=== PATIENT | male | born 1950 | race Caucasian/White ===

== ENCOUNTER 2019-09-10 20:49 | Emergency (ER) | payer OTHER ==
--- OUTSIDE RECORDS SUMMARY | 2019-09-10 20:51 | XMS REPORT | Summary of Care ---
:1950 Author Organization [facility] Address [address] [place] [address] Care Team Providers Name Role Phone Pcp, Patient Does Not Have A Primary Care Provider Reason for Referral Radiology Services (Routine) Status Reason Specialty Diagnoses / Referred By Referred To Procedures Contact Contact Closed Diagnostic Diagnoses Left leg pain Devin Brizuela Radiology Procedures XR FEMUR 2 VW LEFT MD Chiquita [address] [place] [address] Radiology Services (Routine) Status Reason Specialty Diagnoses / Referred By Referred To Procedures Contact Contact Closed Diagnostic Diagnoses Left leg pain eDvin Brizuela Radiology Procedures XR FEMUR 2 VW [place] [address] Reason for Visit Radiology Services (Routine) Status Reason Specialty Diagnoses / Referred By Referred To Procedures Contact Contact Closed Diagnostic Diagnoses Left leg pain Devin Brizuela Radiology Procedures XR FEMUR 2 VW [place] [address] Encounter Details Date Type Department Care Team Description 02/13/2019 Hospital Encounter [facility] Devin Brizuela Arrived [facility] [address] [facility] [address] [place] [address] [address] [phone] [place] [address] Allergies Active Allergy Reactions Severity Noted Date Comments Penicillin Unknown - See comments 02/13/2019 documented as of this encounter (statuses as of 02/14/2019) Medications No known medicationsdocumented as of this encounter (statuses as of 02/14/2019) Active Problems Not on filedocumented as of this encounter (statuses as of 02/14/2019) Social History Tobacco Use Types Packs/Day Years Used Date Never Assessed Sex Assigned at Date Recorded Not on file Job Start Date Occupation Industry Not on file Not on file Not on file Travel History Travel Start Travel End No recent travel history available. documented as of this encounter Last Filed Vital Signs Not on filedocumented in this encounter Plan of Treatment Health Maintenance Due Date Last Done Comments HEPATITIS C (HCV) SCREEN 1950 DTaP,Tdap,and Td Vaccines (1 - Tdap) 1968 COLONOSCOPY 1999 Zoster Recombinant Vaccine (SHINGRIX) (1 of 2) 1999 Medicare Wellness Visit 2014 PNEUMOCOCCAL VACCINES 65+ (1 of 2 - PCV13) 2014 INFLUENZA VACCINE (#1) 2019 documented as of this encounter Procedures Procedure Name Priority Date/Time Associated Diagnosis Comments XR FEMUR 2 VW LEFT Routine 02/13/2019 1:53 PM Left leg pain Results for this CDT procedure are in the results section. documented in this encounter Results XR FEMUR 2 VW LEFT (02/13/2019 1:53 PM CDT) Specimen Impressions Performed At PACS/VR/DOSE Unremarkable duese-dqv-qult amputation changes. 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 Narrative Performed At EXAM: PACS/VR/DOSE XR FEMUR 2 VW LEFT HISTORY: BKA COMPARISON: None FINDINGS: Imaging of the left femur demonstrates changes of msyjg-bpg-dvyz amputation through the mid femoral diaphysis with unremarkable bony margins of resection. No soft tissue gas, periosteal reaction or osteolysis is seen. Vascular/dystrophic calcification is seen along the femoral neck. Procedure Note [facility], Radiant Results Inft User - 02/13/2019 2:14 PM CDT EXAM: XR FEMUR 2 VW LEFT HISTORY: BKA COMPARISON: None FINDINGS: Imaging of the left femur demonstrates changes of cnnxe-kht-zmmn amputation through the mid femoral diaphysis with unremarkable bony margins of resection. No soft tissue gas, periosteal reaction or osteolysis is seen. Vascular/dystrophic calcification is seen along the femoral neck. IMPRESSION Unremarkable yivgz-ogb-ytrq amputation changes. 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 Performing Organization Address City/State/Zipcode Phone Number PACS/VR/DOSE documented in this encounter Visit Diagnoses Diagnosis Left leg pain Pain in limb documented in this encounter Insurance Payer Benefit Plan / Subscriber ID Effective Dates Phone Address Type Group [facility] TANVIR RAMEY [id number] 2018-Presen Medicare Adv PLUS PLUS t HMO CLASSIC/VALUE documented as of this encounter
--- OUTSIDE RECORDS SUMMARY | 2019-09-10 20:51 | XMS REPORT | Summary of Care ---
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) no films Chata Gale Craig SURGERY / Procedures CONSULT/REFERRAL ORTHOPAEDIC SURGERY NEW VISIT (FIRST TIME) Maico Porras MD Orthopedic Surgery [address] [facility] [address] [facility] [address] [place] [phone] [place] [address] Phone: Fax: Encounter Details Date Type Department Care Team Description 02/13/2019 Office Visit [facility] Devin Brizuela Above knee amputation Surgery- Cl Porras MD status, left (Primary [address] [facility], [address] [facility]) [address] [facility] [address] [place] [id number] [place], [place] [phone] [address] Allergies Active Allergy Reactions Severity Noted Date Comments Penicillin Unknown - See comments 02/13/2019 documented as of this encounter (statuses as of 02/13/2019) Medications No known medicationsdocumented as of this encounter (statuses as of 02/13/2019) Active Problems Not on filedocumented as of this encounter (statuses as of 02/13/2019) Social History Tobacco Use Types Packs/Day Years Used Date Never Assessed Sex Assigned at Date Recorded Not on file Job Start Date Occupation Industry Not on file Not on file Not on file Travel History Travel Start Travel End No recent travel history available. documented as of this encounter Last Filed Vital Signs Vital Sign Reading Time Taken Comments Blood Pressure 150/89 02/13/2019 2:12 PM CDT Pulse 73 02/13/2019 2:12 PM CDT Temperature - - Respiratory Rate 18 02/13/2019 2:12 PM CDT Oxygen Saturation - - Inhaled Oxygen Concentration - - Weight 78 kg (172 lb) 02/13/2019 2:12 PM CDT Height 180.3 cm (5' 11") 02/13/2019 2:12 PM CDT Body Mass Index 23.99 02/13/2019 2:12 PM CDT documented in this encounter Progress Notes Devin Brizuela MD - 02/13/2019 1:45 PM CDT Mikala rGimaldo is a 68 year old male Chief Complaint Patient presents with New Patient Leg Pain left leg pain Vitals: 02/13/19 1412 BP: (!) 150/89 BP Location: Left arm Patient Position: Sitting BP CUFF SIZE: Adult Medium Pulse: 73 Resp: 18 Weight: 78 kg (172 lb) Height: 71" (180.3 cm) No Pharmacies Listed ( patient does not know names of medicines he is taking and he gets his medications through the [facility] in [place]) All Vitals taken, allergies and all medications reviewed, fall risk assessed. Pain level 5/10. LOLI VÁSUQEZ MA 02/13/2019 2:15 PM Mikala Grimaldo is a 68 year old male. 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 Patient states he feels a pulling sensation since the surgery. He no longer has phantom foot pain. He has tried walking with a prosthetic but it is very painful. Leg Pain The incident occurred more than 1 week ago. The incident occurred at home. There was no injury mechanism. The pain is present in the left leg. The quality of the pain is described as aching and burning. The pain is at a severity of 7/ 10. The pain is moderate. The pain has been worsening since onset. Associated symptoms include an inability to bear weight. The symptoms are aggravated by movement and weight bearing. He has tried NSAIDs and immobilization for the symptoms. Allergies Mikala is allergic to penicillin. Medications No outpatient medications prior to visit. No facility-administered medications prior to visit. Histories No past medical history on file. No past surgical history on file. Social History Socioeconomic History Marital status: Single Spouse name: Not on file Number of children: Not on file Years of education: Not on file Highest education level: Not on file Occupational History Not on file Social Needs Financial resource strain: Not on file Food insecurity: Worry: Not on file Inability: Not on file Transportation needs: Medical: Not on file Non-medical: Not on file Tobacco Use Smoking status: Not on file Substance and Sexual Activity Alcohol use: Not on file Drug use: Not on file Sexual activity: Not on file Lifestyle Physical activity: Days per week: Not on file Minutes per session: Not on file Stress: Not on file Relationships Social connections: Talks on phone: Not on file Gets together: Not on file Attends anglican service: Not on file Active member of club or organization: Not on file Attends meetings of clubs or organizations: Not on file Relationship status: Not on file Intimate partner violence: Fear of current or ex partner: Not on file Emotionally abused: Not on file Physically abused: Not on file Forced sexual activity: Not on file Other Topics Concern Not on file Social History Narrative Not on file No family history on file. Review of Systems Constitutional: Negative. HENT: Negative. Eyes: Negative. Respiratory: Negative. Breasts: Negative. Cardiovascular: Negative. Gastrointestinal: Negative. Genitourinary: Negative. Musculoskeletal: Positive for joint swelling. Skin: Negative. Neurological: Negative. Psychiatric/Behavioral: Negative. Endocrine: Endocrine negative Vital Signs BP (!) 150/89 (BP Location: Left arm, Patient Position: Sitting, BP CUFF SIZE: Adult Medium) | Pulse 73 | Resp 18 | Ht 71" (180.3 cm) | Wt 78 kg (172 lb) | BMI 23.99 kg/m Physical Exam Musculoskeletal: General: Well-developed well-nourished oriented to person place and time HEENT normocephalic atraumatic atraumatic pupils equal round reactive to light extraocular muscles intact Cervical thoracic and lumbar spine without focal deficit normal kyphosis and lordosis Chest clear to auscultation and percussion Cardiovascular regular rate and rhythm without gallop rub or murmur soft without organomegaly Normal bowel sounds Neurologic: Focal myotome or dermatomal deficits Vascular: Intact symmetrical bilateral upper and lower extremities Skin without stasis varicosities or breakdown Extremities without cyanosis clubbing or edema Lymphatics no peripheral lymphedema Psych normal mood and affect. Neurovascular function is intact. To include brisk capillary refill warm pink skin active motor function and sensory function intact. Nursing note and vitals reviewed. EXAM: XR FEMUR 2 VW LEFT HISTORY: BKA COMPARISON: None FINDINGS: Imaging of the left femur demonstrates changes of gfeln-wxi-zkdx amputation through the mid femoral diaphysis with unremarkable bony margins of resection. No soft tissue gas, periosteal reaction or osteolysis is seen. Vascular/dystrophic calcification is seen along the femoral neck. IMPRESSION Unremarkable ncqtt-xnz-wzyj amputation changes. 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 Assessment/Plan Left above the knee amputation Informed patient it can take a year of continued work for the prosthetic to be properly fitted. An AKA is more difficult than a BKA due to the body energy needed to move the leg. Recommend he continue to work on getting his prosthetic fitted properly. 3: 21 PM CDTdocumented in this encounter Plan of Treatment Health Maintenance Due Date Last Done Comments HEPATITIS C (HCV) SCREEN 1950 DTaP,Tdap,and Td Vaccines (1 - Tdap) 1968 COLONOSCOPY 1999 Zoster Recombinant Vaccine (SHINGRIX) (1 of 2) 1999 Medicare Wellness Visit 2014 PNEUMOCOCCAL VACCINES 65+ (1 of 2 - PCV13) 2014 INFLUENZA VACCINE (#1) 2019 documented as of this encounter Results Not on filedocumented in this encounter Visit Diagnoses Diagnosis Above knee amputation status, left - Primary documented in this encounter Insurance Payer Benefit Plan / Subscriber ID Effective Dates Phone Address Type Group ULISES RAMEY [id number] 2018-Presen Medicare Adv PLUS PLUS t HMO CLASSIC/VALUE documented as of this encounter
--- OUTSIDE RECORDS SUMMARY | 2019-09-10 20:51 | XMS REPORT ---
:1950 [facility] Address [address] [place] [address] Care Team Providers Name Role Phone Unavailable Unavailable Unavailable Problems This patient has no known problems. Allergies, Adverse Reactions, Alerts This patient has no known allergies or adverse reactions. Medications This patient has no known medications.
--- OUTSIDE RECORDS SUMMARY | 2019-09-10 20:51 | XMS REPORT | Summary of Care ---
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 Chata Gale Craig SURGERY / Procedures CONSULT/REFERRAL ORTHOPAEDIC SURGERY NEW VISIT (FIRST TIME) Maico Porras MD Orthopedic Surgery [address] [facility] [address] [facility] [address] [place] [phone] [place] [address] Phone: Fax: Encounter Details Date Type Department Care Team Description 02/13/2019 Office Visit [facility] Orthopaedic Devin Brizuela Above knee amputation Surgery- Cl Porras MD status, left (Primary 7 [facility], [address] [facility]) [address] [place] [phone] [place], [place] [phone] Allergies Active Allergy Reactions Severity Noted [...] MD - 02/13/2019 1:45 PM CDT Mikala Grimaldo is a 68 year old male Chief [...] and he gets his medications through the [facility] in [place]) All Vitals taken, allergies and all medications reviewed, fall risk assessed. Pain level 5/10. LOLI VÁSQUEZ MA 02/13/2019 2:15 PM Mikala Grimaldo is [...] file Gets together: Not on file Attends sikh service: Not on file Active member of [...] of the left femur demonstrates changes of yulgv-fru-ksrw amputation through the mid femoral diaphysis with unremarkable bony margins of resection. No soft tissue gas, periosteal reaction or osteolysis is seen. Vascular/dystrophic calcification is seen along the femoral neck. IMPRESSION Unremarkable ztwqi-ytx-vfep amputation changes. 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 [...] Dates Phone Address Type Group ULISES RAMEY [id number] 2018-Presen Medicare Adv PLUS PLUS t HMO CLASSIC/VALUE documented as of this encounter
--- OUTSIDE RECORDS SUMMARY | 2019-09-10 20:52 | XMS REPORT | Summary of Care ---
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 [address] [place] [phone] [place] [address] Allergies Active Allergy Reactions Severity Noted Date Comments Penicillin Unknown - See comments 02/13/2019 documented as of this encounter (statuses as of 09/04/2019) Medications No known medicationsdocumented as of this encounter (statuses as of 09/04/2019) Active Problems Not on filedocumented as of this encounter (statuses as of 09/04/2019) Social History Tobacco Use Types Packs/Day Years Used Date Never Assessed Sex Assigned at Date Recorded Not on file Job Start Date Occupation Industry Not on file Not on file Not on file Travel History Travel Start Travel End No recent travel history available. documented as of this encounter Last Filed Vital Signs Vital Sign Reading Time Taken Comments Blood Pressure 164/98 09/04/2019 5:55 PM CDT Pulse 85 09/04/2019 5:55 PM CDT Temperature 37.1 C (98.7 F) 09/04/2019 5:55 PM CDT Respiratory Rate 18 09/04/2019 5:55 PM CDT Oxygen Saturation 97% 09/04/2019 5:55 PM CDT Inhaled Oxygen Concentration - - Weight 77.1 kg (170 lb) 09/04/2019 5:55 PM CDT Height - - Body Mass Index 23.71 02/13/2019 2:12 PM CDT documented in this encounter Plan of Treatment Health [...] Results Not on filedocumented in this encounter Insurance Payer Benefit Plan Subscriber ID Effective Phone Address Type / Group Dates [facility] [id number] 2019-[place] [phone] [address] Medicare Adv PLUS/SELEC SNP nt [phone] [id number] [place] [address] documented as of this encounter
--- NOTE | 2019-09-10 21:33 | ER ---
[facility]'s [facility] Name: Melony Grimaldo Age: 69 yrs Sex: Male : 1950 Arrival Date: 09/10/2019 Time: 20:52 Bed 17 Private MD: Diagnosis: Dermatitis, unspecified Presentation: 09/09 21:01 Acuity: WILTON 5 sg 21:03 Method Of Arrival: Ambulatory ea 21:03 Chief complaint: Patient states: Itching all over body for several weeks now. sg Coronavirus screen: Patient denies fever greater than 100.4F, cough, shortness of breath, or difficulty breathing. Ebola Screen: Patient negative for fever greater than or equal to 101.5 degrees Fahrenheit, and additional compatible Ebola Virus Disease symptoms Patient denies exposure to infectious person. Patient denies travel to an Ebola-affected area in the 21 days before illness onset. No symptoms or risks identified at this time. Onset: The symptoms/episode began/occurred last week. Anaphylaxis evaluation, no signs or symptoms of anaphylaxis were noted. Initial Sepsis Screen: Does the patient meet any 2 criteria? No. Patient's initial sepsis screen is negative. Does the patient have a suspected source of infection? No. Patient's initial sepsis screen is negative. Risk Assessment: Do you want to hurt yourself or someone else? Patient reports no desire to harm self or others. 21:06 Ebola Screen: No symptoms or risks identified at this time. ea Historical: - Allergies: 21:00 PENICILLINS; sg - Home Meds: 21:00 Tramadol Oral [Active]; Unknown sleeping pill [Active]; Zoloft Oral [Active]; sg - PMHx: 21:00 chronic pain - left leg; sg - PSHx: 21:00 Leg surgery - Left; Knee surgery; Appendectomy; sg - Immunization history:: Adult Immunizations not up to date. - Social history:: Smoking status: Patient reports the use of cigarette tobacco products. Screenin:06 Abuse screen: Denies threats or abuse. Nutritional screening: No deficits noted. ea Tuberculosis screening: No symptoms or risk factors identified. Fall Risk None identified. Assessment: 21:15 General: Appears in no apparent distress. Behavior is calm, cooperative, appropriate ea for age. Pain: Denies pain. Respiratory: Airway is patent Respiratory effort is even, unlabored. Vital Signs: 21:09 BP 162 / 74; Pulse 81; Resp 18; Temp 99; Pulse Ox 100% ; ea ED Course: 20:52 Patient arrived in ED. ds1 20:58 Ricardo Munson MD is Attending Physician. tw4 21: Triage completed. sg 21:01 Arm band placed on. sg 21:02 Patient has correct armband on for positive identification. Bed in low position. ea Administered Medications: No medications were administered Outcome: : Discharged to home ambulatory. ea 21: Condition: stable 21:29 Following a medical screening exam, the patient was provided information regarding alternative care sites and resources available per registration personnel. 21:32 Discharge ordered by . tw4 21:33 Patient left the ED. sg Signatures: Rob Son, RN RN Taya Maldonado ds1 Mariam Richmond, RN Ricardo Kumar ea, MD MD tw4
--- NOTE | 2019-09-10 21:34 | EDPHYS ---
Physician Documentation [facility] Name: Melony Grimaldo Age: 69 yrs Sex: Male : 1950 Arrival Date: 09/10/2019 Time: 20:52 Bed 17 Private MD: CASSANDRA Physician Ricardo Munson HPI: 09/10 03:53 This 69 yrs old Male presents to ER via Ambulatory with complaints of Itching.tw4 03:53 The patient's rash thought to be caused by Dermatitis. The rash is located on the body tw4 diffusely. The rash can be described as papular. Onset: The symptoms/episode began/occurred today. Associated signs and symptoms: Pertinent positives: itching. The patient has not experienced similar symptoms in the past. Historical: - Allergies: 09/09 21:00 PENICILLINS; sg - Home Meds: 21:00 Tramadol Oral [Active]; Unknown sleeping pill [Active]; Zoloft Oral [Active]; sg - PMHx: 21:00 chronic pain - left leg; sg - PSHx: 21:00 Leg surgery - Left; Knee surgery; Appendectomy; sg - Immunization history:: Adult Immunizations not up to date. - Social history:: Smoking status: Patient reports the use of cigarette tobacco products. ROS: 09/10 03:53 Constitutional: Negative for fever, chills, and weight loss, Eyes: Negative for injury, tw4 pain, redness, and discharge, Cardiovascular: Negative for chest pain, palpitations, and edema, Respiratory: Negative for shortness of breath, cough, wheezing, and pleuritic chest pain, Abdomen/GI: Negative for abdominal pain, nausea, vomiting, diarrhea, and constipation, MS/Extremity: Negative for injury and deformity, Neuro: Negative for headache, weakness, numbness, tingling, and seizure. Skin: Positive for rash. Exam: 03:53 Constitutional: This is a well developed, well nourished patient who is awake, alert, tw4 and in no acute distress. Head/Face: Normocephalic, atraumatic. Chest/axilla: Normal chest wall appearance and motion. Nontender with no deformity. No lesions are appreciated. Cardiovascular: Regular rate and rhythm with a normal S1 and S2. No gallops, murmurs, or rubs. Normal PMI, no JVD. No pulse deficits. Respiratory: Lungs have equal breath sounds bilaterally, clear to auscultation and percussion. No rales, rhonchi or wheezes noted. No increased work of breathing, no retractions or nasal flaring. Abdomen/GI: Soft, non-tender, with normal bowel sounds. No distension or tympany. No guarding or rebound. No evidence of tenderness throughout. Back: No spinal tenderness. No costovertebral tenderness. Full range of motion. MS/ Extremity: Pulses equal, no cyanosis. Neurovascular intact. Full, normal range of motion. Neuro: Awake and alert, GCS 15, oriented to person, place, time, and situation. Cranial nerves II-XII grossly intact. Motor strength 5/5 in all extremities. Sensory grossly intact. Cerebellar exam normal. Normal gait. 03:53 Skin: contact dermatitis. Vital Signs: 09/09 21:09 BP 162 / 74; Pulse 81; Resp 18; Temp 99; Pulse Ox 100% ; ea MDM: 20:58 Patient medically screened. tw4 21:32 Data reviewed: vital signs, nurses notes. Counseling: I had a detailed discussion with [facility] the patient and/or guardian regarding: the historical points, exam findings, and any diagnostic results supporting the discharge/admit diagnosis. Medical screen evaluation completed. EMTALA emergency medical condition absent. Special discussion: I discussed with the patient/guardian in detail that at this point there is no indication for admission to the hospital. It is understood, however, that if the symptoms persist or worsen the patient needs to return immediately for re-evaluation. 09/10 03:53 Differential diagnosis: impetigo. Data interpreted: Pulse oximetry: Interpretation: tw4 normal. Administered Medications: No medications were administered Disposition: 09/10/19 21:32 Discharged to Home. Impression: Dermatitis, unspecified. - Condition is Stable. - Medication Reconciliation Form, Thank You Letter, Antibiotic Education, Prescription Opioid Use form. - Follow up: Private Physician; When: Upon discharge from the Emergency Department; Reason: Recheck today's complaints, Continuance of care, Re-evaluation by your physician. - Problem is new. - Symptoms have improved. Signatures: Rob Son RN RN sg Wadley, Terrence, MD MD [facility] Corrections: (The following items were deleted from the chart) 09/09 21:33 21:32 09/10/2019 21:32 Discharged to Home. Impression: Dermatitis, unspecified. sg Condition is Stable. Forms are Medication Reconciliation Form, Thank You Letter, Antibiotic Education, Prescription Opioid Use. Follow up: Private Physician; When: Upon discharge from the Emergency Department; Reason: Recheck today's complaints, Continuance of care, Re-evaluation by your physician. Problem is new. Symptoms have improved. tw4
[2019-09-10 21:38] VITALS: BP 162/74; TEMP 99; O2SAT 100
== END 2019-09-10 21:33 | disposition home or self-care (01) ==
LOC: ER 20:49
DX: L30.9 Dermatitis, unspecified (principal); M79.606 Pain in leg, unspecified; G89.29 Other chronic pain; Z79.891 Long term (current) use of opiate analgesic; Z79.899 Other long term (current) drug therapy
CPT/HCPCS: 99281

== ENCOUNTER 2019-11-15 22:27 | Emergency (ER) | payer OTHER ==
--- OUTSIDE RECORDS SUMMARY | 2019-11-15 22:29 | XMS REPORT | Continuity of Care Document ---
:1950 Author Organization [facility] t Address [address] [place] [address] Care Team Providers Name Role Phone Alyssa Jerald LUCAS Attending Clinician Chiquita Brizuela MD Attending Clinician Problems This patient has no known problems. Allergies, Adverse Reactions, Alerts This patient has no known allergies or adverse reactions. Medications This patient has no known medications. Procedures This patient has no known procedures. Encounters Start End Encounter Admission Attending Care Care Encounter Source Date/Time Date/Time Type Type Clinicians Facility Department ID 2019-09-04 2019-09-04 Emergency Alyssa, TRAUMA [id number] 17:58:19 18:30:00 [facility] [id number] 2019-02-13 2019-02-13 [facility] [id number] 13:15:00 23:59:00 Encounter Devin [place] [id number] [place] [id number] [place] [id number] 2019-02-13 2019-02-13 Office [facility] [id number] 14:09:09 14:39:13 Visit Devin Porras [facility] [id number] Surgical [id number] Special [id number] [place] Results This patient has no known results.
[2019-11-16 00:36] LABS: Arterial Blood Carboxyhemoglob 1.6 % (0-1.5); Blood Gas Oxyhemoglobin 91.8 % (94-97); Blood O2 Saturation 94.3 % (92-98.5)
[2019-11-16] MEDS ORDERED: METHYLPREDNISOLONE 125 MG INJ ONE (00:36)
[2019-11-16] MEDS ORDERED: IPRATROPIUM BROM 0.5MG/2.5ML ONE (00:36)
[2019-11-16] MEDS ORDERED: ALBUTEROL 2.5 MG/3 ML NEB SOL ONE (00:37)
[2019-11-16] MEDS ORDERED: NA CHLORIDE 0.9% 1,000 ML ONE (00:37)
[2019-11-16 01:09] LABS: Basophils % 1.2 % (0-1.3); Hematocrit 44.2 % (39.6-49.0); Lymphocytes % 36.8 % (15.3-44.8); MPV 7.5 fL (7.6-11.3); RBC Red Blood Cell Count 4.76 M/uL (4.33-5.43)
[2019-11-16 01:15] LABS: Protime INR 0.85
[2019-11-16 01:27] LABS: ALT/SGPT 57 U/L (12-78); Albumin 3.5 g/dL (3.4-5.0); Alkaline Phosphatase 71 U/L (45-117); BUN Blood Urea Nitrogen 14 mg/dL (7-18); Bicarbonate 26 mmol/L (21-32); Bilirubin Direct < 0.1 mg/dL (0-0.2); Bilirubin Total 0.3 mg/dL (0.2-1.0); Glucose Level 97 mg/dL (74-106); Protein, Total 7.3 g/dL (6.4-8.2); Sodium Level 141 mmol/L (136-145)
[2019-11-16 01:28] LABS: AST/SGOT 40 U/L (15-37); Magnesium 2.4 mg/dL (1.8-2.4); Potassium 3.7 mmol/L (3.5-5.1)
[2019-11-16 01:32] LABS: NT PRO-BNP 131 pg/mL (<125); Troponin (Emerg Dept Use Only) < 0.02 ng/mL (0.0-0.045)
--- NOTE | 2019-11-16 03:11 | EDPHYS ---
Physician Documentation [facility] Name: Melony Grimaldo Age: 69 yrs Sex: Male : 1950 Arrival Date: 11/15/2019 Time: 22:27 Bed 20 Private MD: ED Physician Antonino Riojas HPI: 11/15 00:09 This 69 yrs old Male presents to ER via EMS with complaints of Breathing pkl Difficulty. 00:09 The patient has shortness of breath at rest. Onset: The symptoms/episode began/occurred pkl today. Associated signs and symptoms: Pertinent positives: productive cough. Historical: - Allergies: 11/14 22:34 PENICILLINS; ll1 - Home Meds: 11/15 03:25 Tramadol Oral [Active]; Unknown sleeping pill [Active]; Zoloft Oral [Active]; lp1 - PMHx: 11/14 22:34 chronic pain - left leg; ll1 - PSHx: 22:34 Leg surgery - Left; Knee surgery; Appendectomy; ll1 - Immunization history:: Adult Immunizations up to date. - Social history:: Smoking status: Patient reports the use of cigarette tobacco products, smokes two packs cigarettes per day. Patient uses alcohol, only on a social basis. weekly. Patient/guardian denies using street drugs. ROS: 11/15 00:09 Eyes: Negative for injury, pain, redness, and discharge, ENT: Negative for injury, pkl pain, and discharge, Neck: Negative for injury, pain, and swelling, Cardiovascular: Negative for chest pain, palpitations, and edema. Respiratory: Positive for cough, with clear sputum, shortness of breath, wheezing. Abdomen/GI: Negative for abdominal pain, nausea, vomiting, and diarrhea. Back: Negative for acute changes. : Negative for urinary symptoms. MS/extremity: Negative for acute changes. Skin: Negative for rash. Neuro: Negative for altered mental status. Exam: 00:09 Head/Face: Normocephalic, atraumatic. Eyes: Pupils equal round and reactive to light, pkl extra-ocular motions intact. Lids and lashes normal. Conjunctiva and sclera are non-icteric and not injected. Cornea within normal limits. Periorbital areas with no swelling, redness, or edema. ENT: Nares patent. No nasal discharge, no septal abnormalities noted. Tympanic membranes are normal and external auditory canals are clear. Oropharynx with no redness, swelling, or masses, exudates, or evidence of obstruction, uvula midline. Mucous membranes moist. Neck: Trachea midline, no thyromegaly or masses palpated, and no cervical lymphadenopathy. Supple, full range of motion without nuchal rigidity, or vertebral point tenderness. No Meningismus. Chest/axilla: Normal chest wall appearance and motion. Nontender with no deformity. No lesions are appreciated. Cardiovascular: Regular rate and rhythm with a normal S1 and S2. No gallops, murmurs, or rubs. Normal PMI, no JVD. No pulse deficits. 00:09 Respiratory: the patient does not display signs of respiratory distress, Respirations: normal, Breath sounds: bronchial sounds, that are mild, are scattered, rhonchi, that are mild, are scattered. 00:09 Abdomen/GI: Bowel sounds: normal, Palpation: abdomen is soft and non-tender, in all quadrants. 00:09 Back: Exam negative for acute changes. 00:09 : Exam negative for acute changes. 00:09 Musculoskeletal/extremity: Exam is negative for acute changes. 00:09 Skin: Exam negative for rash. 00:09 Neuro: Orientation: is normal, Mentation: is normal, Cranial nerves: grossly normal, Motor: is normal. Vital Signs: 11/14 22:34 BP 152 / 87; Pulse 81; Resp 19; Temp 98.1; Pulse Ox 99% on Non-rebreather mask; Pain ll1 5/10; 23:00 BP 146 / 76; Pulse 72; Resp 18; Pulse Ox 100% on Non-rebreather mask; vc 11/15 00:00 BP 137 / 73; Pulse 70; Resp 18; Pulse Ox 100% on Non-rebreather mask; vc 01:00 BP 148 / 71; Pulse 88; Resp 19; Pulse Ox 98% on Nebulizer Mask; vc 02:45 BP 136 / 69; Pulse 89; Resp 18; Pulse Ox 92% on R/A; vc 03:34 BP 158 / 92; Pulse 90; Resp 18; Pulse Ox 97% on R/A; lp1 MDM: 11/14 22:49 Patient medically screened. pkl 11/15 03:08 Data reviewed: vital signs, nurses notes, lab test result(s), EKG, radiologic studies, pkl CT scan, plain films. ED course: Patient feeling better. Advised to follow up with PCP next week. Patient understood instruction. 11/15 00:07 Order name: Basic Metabolic Panel pkl 11/15 00:07 Order name: CBC with Diff pkl 11/15 00:07 Order name: LFT's pkl 11/15 00:07 Order name: Magnesium pkl 11/15 00:07 Order name: NT PRO-BNP; Complete Time: 02:09 pkl 11/15 00:07 Order name: PT-INR pkl 11/15 00:07 Order name: Troponin (emerg Dept Use Only); Complete Time: 02:09 pkl 11/15 00:07 Order name: ABG; Complete Time: 00:56 pkl 11/15 00:07 Order name: Blood Culture Adult (2) pkl 11/15 00:07 Order name: Lactate; Complete Time: 02:09 pkl 11/15 00:08 Order name: Basic Metabolic Panel; Complete Time: 01:30 EDMS 11/15 00:09 Order name: CBC with Automated Diff; Complete Time: 01:23 EDMS 06 00:10 Order name: Liver (Hepatic) Function; Complete Time: 01:30 EDMS 06 00:10 Order name: Magnesium; Complete Time: 01:30 EDMS 06 00:07 Order name: XRAY Chest (1 view) pkl 11/15 00:07 Order name: EKG; Complete Time: 00:12 pkl 11/15 00:07 Order name: Cardiac monitoring; Complete Time: 03:03 pkl 11/15 00:07 Order name: EKG - Nurse/Tech; Complete Time: 02:55 pkl 11/15 00:07 Order name: IV Saline Lock; Complete Time: 01:19 pkl 11/15 00:07 Order name: Labs collected and sent; Complete Time: 01:16 pkl 11/15 00:07 Order name: O2 Per Protocol; Complete Time: 03:03 pkl 11/15 00:07 Order name: O2 Sat Monitoring; Complete Time: 03:03 pkl 11/15 01:32 Order name: CT Chest Angio pkl Administered Medications: 00:40 Drug: Albuterol - atroVENT (3:1) (2.5 mg - 0.5 mg) 3 ml Route: Nebulizer; vc 00:58 Drug: SOLU-Medrol 125 mg Route: IVP; Site: left antecubital; vc 01:05 Drug: NS 0.9% 1000 ml Route: IV; Rate: 125 ml/hr; Site: left antecubital; vc 03:37 Follow up: IV Status: IV converted to saline lock lp1 Disposition: 11/16/19 03:10 Discharged to Home. Impression: COPD exacerbation. - Condition is Stable. - Prescriptions for Albuterol Sulfate 90 mcg/actuation - inhale 1-2 puff by INHALATION route every 4-6 hours; 1 Inhaler. - Medication Reconciliation Form, Thank You Letter, Antibiotic Education, Prescription Opioid Use form. - Follow up: Private Physician; When: 2 - 3 days; Reason: Re-evaluation by your physician. - Problem is new. - Symptoms have improved. Signatures: Dispatcher [employer] EDMS Antonino Riojas MD MD pkl Myranda Bravo RN RN lp1 Vandana Plata RN RN vc Lewis, Lynsay RN RN ll1 Corrections: (The following items were deleted from the chart) 04:54 03:10 11/16/2019 03:10 Discharged to Home. Impression: COPD exacerbation. Condition is lp1 Stable. Forms are Medication Reconciliation Form, Thank You Letter, Antibiotic Education, Prescription Opioid Use. Follow up: Private Physician; When: 2 - 3 days; Reason: Re-evaluation by your physician. Problem is new. Symptoms have improved. pkl
--- NOTE | 2019-11-16 03:11 | ER ---
Nurse's Notes [facility] Name: Melony Grimaldo Age: 69 yrs Sex: Male : 1950 Arrival Date: 11/15/2019 Time: 22:27 Bed 20 Private MD: Diagnosis: COPD exacerbation Presentation: 11/14 22:34 Chief complaint: Patient states: SOB began today with cough. Audible wheezing. 94% RA ll1 for EMS. No fever. Coronavirus screen: Surgical mask placed on patient. Patient moved to private room, placed in contact and droplet isolation with eye protection until further assessment. Patient reports a cough. Patient reports shortness of breath or difficulty breathing. Patient denies measured and/or subjective temperature greater than 100.4F prior to today's visit. Patient denies travel on a cruise ship or to a country the [facility] currently lists as an affected area. Patient denies contact with known and/or suspected case of COVID-19. Ebola Screen: Patient denies travel to an Ebola-affected area in the 21 days before illness onset. Initial Sepsis Screen: Does the patient meet any 2 criteria? No. Patient's initial sepsis screen is negative. Does the patient have a suspected source of infection? Yes: Productive cough/pneumonia. Risk Assessment: Do you want to hurt yourself or someone else? Patient reports no desire to harm self or others. Onset of symptoms was November 15, 2019. 22:34 Method Of Arrival: EMS ll1 22:34 Acuity: [place] 3 ll1 Triage Assessment: 23:00 General: Appears distressed, uncomfortable, Behavior is calm, cooperative, appropriate vc for age. Respiratory: Reports shortness of breath at rest cough that is productive, Onset: The symptoms/episode began/occurred suddenly, the patient has moderate shortness of breath. Historical: - Allergies: 22:34 PENICILLINS; ll1 - Home Meds: 11/15 03:25 Tramadol Oral [Active]; Unknown sleeping pill [Active]; Zoloft Oral [Active]; lp1 - PMHx: 11/14 22:34 chronic pain - left leg; ll1 - PSHx: 22:34 Leg surgery - Left; Knee surgery; Appendectomy; ll1 - Immunization history:: Adult Immunizations up to date. - Social history:: Smoking status: Patient reports the use of cigarette tobacco products, smokes two packs cigarettes per day. Patient uses alcohol, only on a social basis. weekly. Patient/guardian denies using street drugs. Screenin/06 01:33 Abuse screen: Denies threats or abuse. Nutritional screening: No deficits noted. vc Tuberculosis screening: No symptoms or risk factors identified. Fall Risk No fall in past 12 months (0 pts). No secondary diagnosis (0 pts). IV access (20 points). Ambulatory Aid- Crutches/Cane/Walker (15 pts). Gait- Impaired (20 pts.). Mental Status- Oriented to own ability (0 pts). Total Cooley Fall Scale indicates High Risk Score (45 or more points). Fall prevention measures have been instituted. Side Rails Up X 2. Assessment: 11/14 23:00 Pain: Denies pain. Cardiovascular: No deficits noted. Rhythm is sinus rhythm. vc Respiratory: Airway is patent Respiratory effort is labored, Respiratory pattern is hyperventilation Breath sounds with wheezes bilaterally. 23:00 General: Appears in no apparent distress. uncomfortable, Behavior is calm, cooperative, vc appropriate for age. Pain: Denies pain. Neuro: Level of Consciousness is awake, alert, obeys commands, Oriented to person, place, time, situation. GI: No signs and/or symptoms were reported involving the gastrointestinal system. : No signs and/or symptoms were reported regarding the genitourinary system. 23:50 Reassessment: Patient verbalizes permission to give updates on his care and status to vc daughter Cici Grimaldo. 11/15 00:00 Reassessment: Patient appears in no apparent distress at this time. No changes from vc previously documented assessment. 00:06 Reassessment: Spoke with Brandi Kai, patient's daughter, who has access code; lp1 updated on patient status. 00:55 Reassessment: Spoke with Erin Elmore, patient's significant other with access code; lp1 Patient states okay to update Erin on status. 01:00 Reassessment: Patient appears in no apparent distress at this time. Patient and/or vc family updated on plan of care and expected duration. Pain level reassessed. 02:00 Reassessment: Patient appears in no apparent distress at this time. Patient and/or vc family updated on plan of care and expected duration. Pain level reassessed. Patient states symptoms have improved. 02:53 Reassessment: Patient appears in no apparent distress at this time. Patient and/or vc family updated on plan of care and expected duration. Pain level reassessed. Patient is alert, oriented x 3, equal unlabored respirations, skin warm/dry/pink. Patient states feeling better. Patient states symptoms have improved. 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 03:34 Reassessment: Patient resting, eyes closed, respirations unlabored; aware of waiting lp1 for ride. Vital Signs: 11/14 22:34 BP 152 / 87; Pulse 81; Resp 19; Temp 98.1; Pulse Ox 99% on Non-rebreather mask; Pain ll1 510; 23:00 BP 146 / 76; Pulse 72; Resp 18; Pulse Ox 100% on Non-rebreather mask; vc 11/15 00:00 BP 137 / 73; Pulse 70; Resp 18; Pulse Ox 100% on Non-rebreather mask; vc 01:00 BP 148 / 71; Pulse 88; Resp 19; Pulse Ox 98% on Nebulizer Mask; vc 02:45 BP 136 / 69; Pulse 89; Resp 18; Pulse Ox 92% on R/A; vc 03:34 BP 158 / 92; Pulse 90; Resp 18; Pulse Ox 97% on R/A; lp1 ED Course: 11/14 22:27 Patient arrived in ED. cl3 22:36 Triage completed. ll1 22:36 Arm band placed on Patient placed in an exam room, on a stretcher. ll1 22:49 Antonino Riojas MD is Attending Physician. pkl 23:00 Patient has correct armband on for positive identification. Bed in low position. Side vc rails up X2. shelter monitor on. Pulse ox on. NIBP on. 23:46 Vandana Plata RN is Primary Nurse. vc 11/15 00:40 Inserted saline lock: 20 gauge in left forearm, using aseptic technique. vc 00:45 XRAY Chest (1 view) In Process Unspecified. EDMS 02:15 CT Chest Angio In Process Unspecified. EDMS 03:01 Report received from CELSA Ross. lp1 03:23 No provider procedures requiring assistance completed. lp1 03:37 IV discontinued, No redness/swelling at site. Pressure dressing applied. lp1 Administered Medications: 00:40 Drug: Albuterol - atroVENT (3:1) (2.5 mg - 0.5 mg) 3 ml Route: Nebulizer; vc 00:58 Drug: SOLU-Medrol 125 mg Route: IVP; Site: left antecubital; vc 01:05 Drug: NS 0.9% 1000 ml Route: IV; Rate: 125 ml/hr; Site: left antecubital; vc 03:37 Follow up: IV Status: IV converted to saline lock lp1 Outcome: 03:10 Discharge ordered by . pktika 03:34 Discharged to home with family. lp1 03:34 Condition: good 03:34 Discharge instructions given to patient, Instructed on discharge instructions, follow up and referral plans. medication usage, Demonstrated understanding of instructions, follow-up care, medications, Prescriptions given X 1. 04:54 Patient left the ED. lp1 Signatures: Dispatcher [employer] EDMS Antonino Riojas MD MD pkl Myranda Bravo RN RN lp1 Paul Mayfield cl3 Vandana Plata RN RN vc Tracy Mayfield RN RN ll1 Corrections: (The following items were deleted from the chart) 06 22:36 22:33 Chief complaint: ll1 ll1
[2019-11-16 05:03] VITALS: TEMP 98.1
[2019-11-16 05:09] VITALS: BP 158/92; O2SAT 97
--- NOTE | 2019-11-16 08:37 | RAD REPORT ---
EXAM DESCRIPTION: RAD - Chest Single View - 11/16/2019 12:45 am CLINICAL HISTORY: Cough;Dyspnea COMPARISON: March 2009 TECHNIQUE: AP portable chest image was obtained 11/16/2019 12:45 am . FINDINGS: Lungs are clear. Heart and vasculature are normal. No measurable pleural effusion and no p neumothorax. No acute bony abnormality seen. No acute aortic findings suspected. IMPRESSION: No acute cardiopulmonary process. No significant change from comparison.
--- NOTE | 2019-11-18 07:49 | EKG ---
Test Date: 2019-11-16 Test Time: 01:26:40 Abrasive Band Winder: MU MEASUREMENT RESULTS: Intervals: Rate: 90 CA: 140 QRSD: 84 QT: 390 QTc: 477 Lillian: P: 75 CA: 140 QRS: 33 T: 38 INTERPRETIVE STATEMENTS: Normal sinus rhythm Septal infarct, age undetermined Abnormal ECG No previous ECG available for comparison Electronically Signed On 11-18-19 07:45:06 CDT by Andrew Kelly
--- NOTE | 2019-11-18 08:38 | RAD REPORT ---
EXAM DESCRIPTION: CT - Chest Angio - 11/16/2019 5:10 am CLINICAL HISTORY: The patient is 69 years old and is Male; DYSPNEA TECHNIQUE: Axial computed tomographic angiography images of the chest with intravenous contrast. S agittal and coronal reformatted images were created and reviewed. This CT exam was performed using one or more of the following dose reduction techniques: automated exposure control, adjustment of t he mA and/or kV according to patient size, and/or use of iterative reconstruction technique. MIP reconstructed images were created and reviewed. COMPARISON: No relevant prior studies available. FINDINGS: ARTIFACTS: The exam is suboptimal secondary to motion artifact. PULMONARY ARTERIES: There are no obvious filling defects identified within the pulmonary arterie s to suggest pulmonary embolism. AORTA: No acute findings. No thoracic aortic aneurysm. LUNGS: Mild cystic change of the lung apices is noted. There is no lobar consolidation. Minima l dependent atelectasis is present. PLEURAL SPACE: Unremarkable. No significant effusion. No pneumothorax. HEART: Unremarkable. No cardiomegaly. No significant pericardial effusion. No evidence of RV dysfunction. BONES/JOINTS: Compression deformity of a midthoracic vertebral body is present which appears chr onic. No dislocation. SOFT TISSUES: Unremarkable. LYMPH NODES: Unremarkable. No enlarged lymph nodes. IMPRESSION: No evidence of pulmonary embolism. Electronically signed by: Dona Montenegro MD 11/16/2019 2:42 AM CDT Due to temporary technical issues with the PACS/Fluency reporting system, reports are being signed by the in house radiologist without review as a courtesy to ensure prompt reporting. The interpreting r adiologist is fully responsible for the content of the report.
== END 2019-11-16 04:54 | disposition home or self-care (01) ==
LOC: ER 22:27
DX: J44.1 Chronic obstructive pulmonary disease with (acute) exacerbation (principal); F17.210 Nicotine dependence, cigarettes, uncomplicated; Z88.0 Allergy status to penicillin
CPT/HCPCS: 96361; 93005; 87040 ×2; 85025; 80048; 36415; 83735; 85610; 80076; 83605; 84484; 83880; 71275; 71045; 94640; 82805; 96374; 99285; Q9967; J7030; J2930

== ENCOUNTER 2021-05-18 05:57 | Emergency (ER) | payer OTHER ==
--- OUTSIDE RECORDS SUMMARY | 2021-05-18 06:00 | XMS REPORT | Continuity of Care Document ---
:1950 Author Organization [facility] t Address [address] [place] [address] Care Team Providers Name Role Phone John_S_AH Attending Clinician Unavailable Cristhian_A_AH Attending Clinician Unavailable Jerald Berg Attending Clinician Chata BOOTH L Attending Clinician John_S_AH Admitting Clinician Unavailable Cristhian_A_AH Admitting Clinician Unavailable Payers Payer Name Policy Type Policy Number Effective Date Expiration Date S niko [facility] [id number] 2018 PLUS CLASSIC/VALUE 00:00:00 [facility] [id number] 2019 [place] 00:00:00 (MEDICARE REPLACEMENT/ADVANT AGE - HMO) Problems Condition Condition Condition Status Onset Resolution Last Treating Co mments Source Name Details Category Date Date Treatment Clinician Date Hyperchole Hyperchole Problem Active [facility] sterolemia sterolemia 3-04 Fa elaine 00:00: Practic 00 e Major Major Problem Active [facility] depressive Depressive 3-04 Fa elaine disorder Disorder 00:00: Practi c 00 e Nicotine Nicotine Problem Active Aragon ge dependence Dependence 3-04 Fa elaine 00:00: Practic 00 e Chronic Chronic Problem Active [facility] pain Pain 3-04 Family 00:00: Practic 00 e Essential Essential Problem Active Karen shakeel hypertensi Hypertensi 3-04 Fa elaine on on 00:00: Practic 00 e Chronic Chronic Problem Active [facility] obstructiv Obstructiv 04 Fa elaine e lung e Lung 00:00: Practic disease Disease 00 e Allergies, Adverse Reactions, Alerts Allergy Allergy Status Severity Reaction(s) Onset Inactive Treating Comm ents Source Name Type Date Date Clinician [facility] DRUG Active Unknown-Cmnt [facility] 02-13 ity of 00:00: [address] [place] P[place]ILL Allergy Active Moderate Rash Aragon ge INS to to severe Family substanc Practic e e Social History Smoking Status Start Date Stop Date Source Light Tobacco Smoker [facility] lisa Practice Medications This patient has no known medications. Immunizations Ordered Immunization Filled Immunization Date Status Commen ts Source Name Name influenza, influenza, 2020-04-13 Completed [facility] injectable, injectable, 00:00:00 Practice quadrivalent quadrivalent Vital Signs Vital Name Observation Time Observation Value Comments Source Height 2020-08-13 00:00:00 71 [in_i] [facility] BMI (Body Mass 2020-08-13 00:00:00 21.6 kg/m2 [facility] Index) Practice Body Weight 2020-08-13 00:00:00 155 [lb_av] [facility] Procedures This patient has no known procedures. Plan of Care Planned Activity Planned Date Details Comments Source Instructions [facility] Encounters Start End Encounter Admission Attending Care Care Encounter Source Date/Time Date/Time Type Type Clinicians Facility Department ID 2021-04-08 Emergency [facility] [id number] [facility] 15:57:34 ity of [facility] 2020-11-25 2020-11-25 Outpatient Miller_S_AH VFP VFP [id number] [facility] 05:24:00 05:24:00 [id number] Family Practic e 2020-10-13 2020-10-13 Outpatient José-Mbayo VFP VFP [phone] [facility] 12:17:00 12:17:00 _A_AH [id number] Family Practic e 2020-08-21 2020-08-21 Outpatient José-Mbayo VFP VFP [phone] [facility] 08:50:00 08:50:00 _A_AH [id number] Family Practic e 2020-08-17 2020-08-17 Outpatient José-Mbayo VFP VFP [id number] [facility] 10:16:00 10:16:00 _A_AH [id number] Family Practic e 2020-08-13 2020-08-13 Outpatient Cristhian [facility] [address] [place] [address] 12:11:00 12:11:00 _A_AH [id number] Family Practic e 2020-08-13 2020-08-13 Laine VFP [place] - [id number] [facility] 00:00:00 00:00:00 JoséTadeo [facility] Fam lisa godinez CREAM DUMPER: Medical - Practi c [address] [email or web address] [facility], [address], [place] [address] , Ph. 2019-09-04 2019-09-04 Emergency Alyssa, TRAUMA [id number] 17:58:19 18:30:00 [facility] [id number] 2019-07-31 2019-07-31 Outpatient Cristhian [facility] [address] [place] [address] 07:15:00 07:15:00 _A_AH [id number] Family Practic e 2019-02-13 2019-02-13 Hospital [facility] [id number] 13:15:00 23:59:00 Encounter Devin [facility] [id number] [place] [id number] [place] [id number] 2019-02-13 2019-02-13 Office [facility] [id number] 14:09:09 14:39:13 [facility] [id number] Surgical [id number] [facility] [id number] Logan [facility] Results This patient has no known results.
[2021-05-18] MEDS ORDERED: ONDANSETRON 4 MG/2 ML VIAL ONE (06:33)
[2021-05-18] MEDS ORDERED: MORPHINE 4 MG/ML SYR ONE (06:33)
--- NOTE | 2021-05-18 07:25 | RAD REPORT ---
EXAM DESCRIPTION: CT - C Spine Wo Con - 05/18/2021 6:49 am CLINICAL HISTORY: radicular pain COMPARISON: <Comparisons> TECHNIQUE CT Scan was obtained of the cervical spine without contrast. Reformats were provided in th e sagittal and coronal plane. FINDINGS: No acute fracture of the cervical spine. No traumatic malalignment. No prevertebral edema. Multilevel cervical spondylosis with varying degrees of neural foraminal narrowing. This is severe a t levels including at C3-4 and C4-5. Mild central spinal stenosis is noted at C3-4 secondary to a pos terior disc osteophyte complex. No suspicious thyroid nodules or lymphadenopathy. The lung apices are clear. Carotid artery calcifications. IMPRESSION: No fracture or traumatic malalignment of the cervical spine.
--- NOTE | 2021-05-18 07:26 | RAD REPORT ---
EXAM DESCRIPTION: US - UPPER EXTREMITY VENOUS UNILATE - 05/18/2021 7:19 am CLINICAL HISTORY: PAIN COMPARISON: No comparisonsEXT VENOUS UNI LTD dated 08/07/2007 FINDINGS: Normal compressibility, waveforms, and color Doppler flow present within the right upper e xtremity veins including the right IJ and right subclavian vein. IMPRESSION: Negative for venous thrombosis in the right upper extremity.
--- NOTE | 2021-05-18 07:31 | RAD REPORT ---
EXAM DESCRIPTION: RAD - Shoulder Right 2 View - 05/18/2021 7:05 am CLINICAL HISTORY: right shoulder pain COMPARISON: No comparisons FINDINGS: No acute fracture. No malalignment. Right-sided AC joint degenerative changes with subacro mial spurring. Ossific density along the superior margin of the humerus may be from calcific tendinit is or other underlying degenerative changes. Mild right glenohumeral joint degenerative changes. IMPRESSION: No acute osseous abnormality involving the right shoulder.
--- NOTE | 2021-05-18 09:05 | ER ---
Nurse's Notes [facility] Name: Melony Grimaldo Age: 71 yrs Sex: Male : 1950 Arrival Date: 05/18/2021 Time: 06:03 Bed 17 Private MD: Diagnosis: Cervical Radiculopathy Presentation: 05/18 06:03 Chief complaint: EMS states: r arm pain, denies fall or injury. Coronavirus screen: At as6 this time, the client does not indicate any symptoms associated with coronavirus-19. Ebola Screen: No symptoms or risks identified at this time. Initial Sepsis Screen: Does the patient meet any 2 criteria? No. Patient's initial sepsis screen is negative. Does the patient have a suspected source of infection? No. Patient's initial sepsis screen is negative. Risk Assessment: Do you want to hurt yourself or someone else? Patient reports no desire to harm self or others. Onset of symptoms was May 17, 2021. 06:03 Method Of Arrival: EMS: [facility] as6 06:03 Acuity: WILTON 3 as6 Historical: - Allergies: 06:06 PENICILLINS; as6 - Home Meds: 06:06 None [Active]; as6 - PMHx: 06:06 Hypertensive disorder; as6 - PSHx: 06:06 Appendectomy; Amputated below knee; as6 - Immunization history:: Adult Immunizations up to date, Client reports having NOT received the Covid vaccine. - Social history:: Smoking status: Patient reports the use of cigarette tobacco products, smokes one pack cigarettes per day. Screenin:08 Abuse screen: Denies threats or abuse. Nutritional screening: No deficits noted. as6 Tuberculosis screening: No symptoms or risk factors identified. Fall Risk None identified. Assessment: 06:10 General: Appears in no apparent distress. uncomfortable, Behavior is calm, cooperative. as6 Pain: Complains of pain in right arm. Neuro: Level of Consciousness is awake, alert, obeys commands, Oriented to person, place, time, situation. Cardiovascular: Capillary refill < 3 seconds Patient's skin is warm and dry. Pulses are absent in right radial artery. Respiratory: Airway is patent Trachea midline Respiratory effort is even, unlabored, Respiratory pattern is regular, symmetrical. Derm: Skin is intact. Musculoskeletal: Amputation of left leg. 07:17 Reassessment: Patient and/or family updated on plan of care and expected duration. Pain as6 level reassessed. Patient is alert, oriented x 3, equal unlabored respirations, skin warm/dry/pink. 07:44 Reassessment: No changes from previously documented assessment. Patient and/or family ll1 updated on plan of care and expected duration. Pain level reassessed. Patient is alert, oriented x 3, equal unlabored respirations, skin warm/dry/pink. 08:30 Reassessment: No changes from previously documented assessment. Patient and/or family ll1 updated on plan of care and expected duration. Pain level reassessed. Patient is alert, oriented x 3, equal unlabored respirations, skin warm/dry/pink. 09:21 Reassessment: No changes from previously documented assessment. Patient and/or family ll1 updated on plan of care and expected duration. Pain level reassessed. Patient is alert, oriented x 3, equal unlabored respirations, skin warm/dry/pink. 09:42 Reassessment: No changes from previously documented assessment. Patient and/or family ll1 updated on plan of care and expected duration. Pain level reassessed. Patient is alert, oriented x 3, equal unlabored respirations, skin warm/dry/pink. Patient states feeling better. Vital Signs: 06:03 BP 162 / 88; Pulse 90; Resp 20 S; Temp 98.1(TE); Pulse Ox 97% ; Weight 72.57 kg (R); as6 Height 5 ft. 11 in. (180.34 cm) (R); Pain 10/10; 07:44 BP 192 / 98; Pulse 97; Resp 18; Pulse Ox 98% on R/A; ll1 09:20 BP 175 / 92; Pulse 95; Resp 18; Pulse Ox 97% on R/A; ll1 09:41 BP 171 / 89; Pulse 92; Resp 17; Pulse Ox 97% on R/A; ll1 06:03 Body Mass Index 22.32 (72.57 kg, 180.34 cm) as ED Course: 06:03 Patient arrived in ED. 06:06 Triage completed. 06:08 Arm band placed on. 06:08 Bed in low position. Call light in reach. Side rails up X2. Pulse ox on. NIBP on. Warm as blanket given. 06:10 Sea Fuentes PA is PHCP. [facility] 06:10 Antonino Riojas MD is Attending Physician. [facility] 06:28 Inserted saline lock: 22 gauge in left antecubital area, using aseptic technique. Blood ds4 collected. 06:30 Arthur Santiago, CELSA is Primary Nurse. as6 06:49 CT C Spine In Process Unspecified. EDMS 07:05 Shoulder Right (2 View) XRAY In Process Unspecified. EDMS 07:19 UPPER EXTREMITY VENOUS UNILATE In Process Unspecified. EDMS 08:11 Primary Nurse role handed off by Arthur Santiago RN ll1 08:11 Tracy Mayfield, CELSA is Primary Nurse. ll1 09:41 No provider procedures requiring assistance completed. IV discontinued, intact, ll1 bleeding controlled, No redness/swelling at site. Pressure dressing applied. Administered Medications: 06:36 Drug: morphine 4 mg Route: IVP; Site: left antecubital; as6 07:06 Follow up: Response: No adverse reaction; RASS: Alert and Calm (0) ll1 06:36 Drug: Zofran (Ondansetron) 4 mg Route: IVP; Site: left antecubital; as6 07:06 Follow up: Response: No adverse reaction ll1 09:20 Drug: Valium (diazepam) 2 mg Route: IVP; Site: left forearm; ll1 09:42 Follow up: Response: No adverse reaction; Pain is decreased; RASS: Alert and Calm (0) ll1 Outcome: 09:04 Discharge ordered by MD. [facility] 09:41 Discharged to home via wheelchair. ll1 09:41 Condition: stable 09:41 Discharge instructions given to patient, Instructed on discharge instructions, follow up and referral plans. medication usage, Demonstrated understanding of instructions, follow-up care, medications, Prescriptions given X 2. 09:42 Patient left the ED. ll1 Signatures: Dispatcher [employer] EDAZ Sea Fuentes PA PA jmm Swanson, Donovan ds4 Tracy Mayfield, CELSA RN ll1 Arthur Santiago, CELSA RN as6 Corrections: (The following items were deleted from the chart) 06:08 06:06 PMHx: chronic pain - left leg; as6 as6 08:32 08:31 Gait steady to restroom. No weakness or dizziness. ll1 ll1
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
[2021-05-18] MEDS ORDERED: DIAZEPAM 10 MG/2 ML INJ SYRINGE ONE (09:17)
[2021-05-18 09:50] VITALS: TEMP 98.1
[2021-05-18 09:52] VITALS: O2SAT 97
[2021-05-18 09:54] VITALS: BP 171/89
--- NOTE | 2021-05-19 12:06 | EKG ---
Test Date: 2021-05-18 Test Time: 07:07:[address] Judge: ALIYAH MEASUREMENT RESULTS: Intervals: Rate: 86 WI: 138 QRSD: 84 QT: 394 QTc: 471 [place]: P: 38 WI: 138 QRS: 42 T: 47 INTERPRETIVE STATEMENTS: Sinus rhythm with premature supraventricular complexes Moderate voltage criteria for LVH, may be normal variant Borderline ECG Compared to ECG 11/16/2019 01:26:40 Atrial premature complex(es) now present Left ventricular hypertrophy now present Myocardial infarct finding no longer present Electronically Signed On 05-19-21 12:03:01 IT INFRASTRUCTURE ARCHITECT by Andrew Kelly
== END 2021-05-18 09:42 | disposition home or self-care (01) ==
LOC: ER 05:57
DX: M54.12 Radiculopathy, cervical region (principal); I10 Essential (primary) hypertension; F17.210 Nicotine dependence, cigarettes, uncomplicated; Z88.0 Allergy status to penicillin
CPT/HCPCS: 93005; 72125; 73030; 93971; 99284; J3360; J2405